=== PATIENT | female | born 1955 | race Caucasian/White ===

== ENCOUNTER 2023-10-20 21:40 | Inpatient (IN) | payer MEDICARE, OTHER ==
[2023-10-20] MEDS ORDERED: Naloxone 2 MG/2 ML Syringe IVPUSH PRN (22:23)
[2023-10-20] MEDS: Sodium Chloride 0.9% 1,000 ML IV ONE (22:26)
[2023-10-20] MEDS: HYDROmorphone 0.5 MG/0.5 ML Syringe IVPUSH ONE (22:29)
[2023-10-20] MEDS: Ondansetron 4 MG/2 ML SDV IVPUSH PRN (22:33)
[2023-10-20 22:41] LABS: BASOPHILS ABSOLUTE AUTO 0.04 10^3/uL (0.00-0.50); BASOPHILS PERCENT AUTO 0.3 % (0-1); EOSINOPHILS ABSOLUTE AUTO 0.15 10^3/uL (0.00-1.50); EOSINOPHILS PERCENT AUTO 1.2 % (0-6); HEMATOCRIT 41.9 % (37.0-47.0); HEMOGLOBIN 13.1 g/dL (12.0-16.0); IMMATURE GRAN ABSOLUTE AUTO 0.05 10^3/uL (0.00-0.49); IMMATURE GRAN PERCENT AUTO 0.4 % (0.0-4.9); LYMPHOCYTES ABSOLUTE AUTO 1.71 10^3/uL (0.60-5.00); MEAN CORPUSCULAR HEMOGLOBIN 28.1 pg (27.0-32.0); MEAN CORPUSCULAR HGB CONC 31.3 g/dL (32.0-36.0); MEAN CORPUSCULAR VOLUME 89.9 fL (83.0-97.0); MONOCYTES ABSOLUTE AUTO 0.75 10^3/uL (0.00-1.50); MONOCYTES PERCENT AUTO 6.2 % (0-10); NEUTROPHILS ABSOLUTE AUTO 9.49 x10^3/uL (1.80-8.00); NEUTROPHILS PERCENT AUTO 77.9 % (41-71); PLATELET COUNT,PLT 288 10^3/uL (150-400); RED BLOOD CELL COUNT 4.66 x10^6/uL (4.00-5.50); WHITE BLOOD CELL COUNT,WBC 12.2 10^3/uL (4.0-11.0)
[2023-10-20 22:54] LABS: BILIRUBIN TOTAL 2.5 mg/dL (0.0-1.0); C-REACTIVE PROTEIN 12.95 mg/dL (<=0.50); CALCIUM 9.6 mg/dL (8.4-10.1); CREATININE 0.8 mg/dL (0.6-1.0); EST CRCL DRUG DOSING (CG) 55.68 mL/min; POTASSIUM,K 4.1 mEq/L (3.5-5.0); PROTEIN TOTAL,TP 7.1 g/dL (6.4-8.2)
[2023-10-20] MEDS ORDERED: Albuterol/Ipratropium 3.0-0.5 MG/3 ML Neb Soln INH PRN (23:23)
[2023-10-21] MEDS: Sodium Chloride 0.9% 1,000 ML IV SCH (00:26)
[2023-10-21] MEDS: metroNIDAZOLE/Normal Saline 500 MG in Premix Bag 1 BAG IV SCH (00:27)
[2023-10-21] MEDS: Ciprofloxacin in D5W 400 MG in Premix Bag 1 BAG IV SCH (01:30)
[2023-10-21 07:28] LABS: BASOPHILS ABSOLUTE AUTO 0.04 10^3/uL (0.00-0.50); BASOPHILS PERCENT AUTO 0.4 % (0-1); EOSINOPHILS ABSOLUTE AUTO 0.17 10^3/uL (0.00-1.50); EOSINOPHILS PERCENT AUTO 1.6 % (0-6); HEMATOCRIT 39.5 % (37.0-47.0); HEMOGLOBIN 11.9 g/dL (12.0-16.0); IMMATURE GRAN ABSOLUTE AUTO 0.03 10^3/uL (0.00-0.49); IMMATURE GRAN PERCENT AUTO 0.3 % (0.0-4.9); LYMPHOCYTES ABSOLUTE AUTO 1.61 10^3/uL (0.60-5.00); LYMPHOCYTES PERCENT AUTO 14.9 % (24-44); MEAN CORPUSCULAR HEMOGLOBIN 27.7 pg (27.0-32.0); MEAN CORPUSCULAR HGB CONC 30.1 g/dL (32.0-36.0); MEAN CORPUSCULAR VOLUME 91.9 fL (83.0-97.0); MONOCYTES ABSOLUTE AUTO 0.84 10^3/uL (0.00-1.50); MONOCYTES PERCENT AUTO 7.8 % (0-10); PLATELET COUNT,PLT 247 10^3/uL (150-400); WHITE BLOOD CELL COUNT,WBC 10.8 10^3/uL (4.0-11.0)
[2023-10-21] MEDS: metFORMIN 500 MG Tab PO SCH (07:35)
[2023-10-21] MEDS: atorvaSTATin 10 MG Tab PO SCH (07:36)
[2023-10-21] MEDS: HYDROmorphone 1 MG/ML Syringe IVPUSH PRN (08:17)
[2023-10-21 15:44] LABS: ALBUMIN 2.7 g/dL (3.4-5.0); BILIRUBIN TOTAL 1.7 mg/dL (0.0-1.0); C-REACTIVE PROTEIN 12.27 mg/dL (<=0.50); CALCIUM 8.7 mg/dL (8.4-10.1); CREATININE 0.7 mg/dL (0.6-1.0); EST CRCL DRUG DOSING (CG) 63.63 mL/min; POTASSIUM,K 3.7 mEq/L (3.5-5.0); PROTEIN TOTAL,TP 6.5 g/dL (6.4-8.2)
[2023-10-21] MEDS ORDERED: Acetaminophen 325 MG Tab PO PRN (16:02)
[2023-10-21] MEDS ORDERED: metFORMIN 500 MG Tab PO SCH (20:00)
[2023-10-21] MEDS ORDERED: Gabapentin 100 MG Cap PO SCH (20:00)
[2023-10-22] MEDS ORDERED: Dulaglutide [Trulicity] 0.75 MG/0.5 ML Pen.Injctr SQ SCH (10:00)
== END 2023-10-21 17:45 | DRG 444 ==
LOC: CC.ED 21:40 → UNDOADMIN 22:56 → CC.MS 22:56
PROVIDERS: ADMIT Physician Assistant Medical; ATTEND Physician Assistant Medical
DX: K83.8 Other specified diseases of biliary tract (principal); K82.8 Other specified diseases of gallbladder; K83.1 Obstruction of bile duct; E78.00 Pure hypercholesterolemia, unspecified; I10 Essential (primary) hypertension; E11.9 Type 2 diabetes mellitus without complications; R74.01 Elevation of levels of liver transaminase levels; Z88.2 Allergy status to sulfonamides; Z79.84 Long term (current) use of oral hypoglycemic drugs; Z79.899 Other long term (current) drug therapy; Z91.048 Other nonmedicinal substance allergy status; Z79.82 Long term (current) use of aspirin
CPT/HCPCS: 36415; 80053; 83605; 84484; 85025; 86140; 93005; 93010; 96361; 96374; 96375; 99223; 99239; 99285-25; A9270-GY; J0744; J1170; J1836; J2405; J7030